=== PATIENT | male | born 1945 | race Caucasian/White ===

== ENCOUNTER → 2018-07-09 08:26 | Outpatient (CLI) | payer MEDICARE, OTHER, SELFPAY ==
[2018-07-09 08:58] LABS: Add Manual Diff / Slide Review NO; Basophils Absolute Auto 0 /uL (0-100); Basophils Percent Auto 0.2 % (0-2); Eosinophils Absolute Auto 300 /uL (0-450); Eosinophils Percent Auto 3.8 % (2-4); Hematocrit 45.6 % (41-53); Hemoglobin 15.8 g/dL (13.5-17.5); Lymphocytes Absolute Auto 2500 /uL (1100-4500); Mean Corpuscular HGB Conc 34.6 % (30-36); Mean Corpuscular Hemoglobin 33.3 PG (26-34); Mean Corpuscular Volume 96.1 fL (80-100); Monocytes Absolute Auto 800 /uL (0-900); Neutrophils Absolute Auto 3400 /uL (1500-7000); Platelet Count 319 X10^3/uL (150-400); Red Blood Cell Count 4.75 X10^6/uL (4.5-5.9); Red Cell Distribution Width 12.9 % (11.6-14.8); White Blood Cell Count 7.1 X10^3/uL (4.5-11.0)
[2018-07-09 08:59] LABS: HEMOLYSIS 18 (0-50)
[2018-07-09 09:02] LABS: Appearance Urine UA CLEAR; Bilirubin Urine UA NEGATIVE (NEGATIVE); Color Urine UA YELLOW; Glucose Urine UA NEGATIVE (Negative); Ketones Urine UA NEGATIVE (NEGATIVE); Leukocyte Esterase Urine UA NEGATIVE (NEGATIVE); Nitrite Urine UA NEGATIVE (Negative); Occult Blood Urine UA NEGATIVE (Negative); Protein Urine UA NEGATIVE (Negative); Specific Gravity Urine UA 1.025 (1.000-1.035); Urobilinogen Urine UA 0.2 E.U./dL (0.2)
[2018-07-09 09:06] LABS: Alanine Aminotransferase 39 IU/L (21-72); Albumin 4.6 g/dL (3.5-5.0); Albumin Globulin Ratio 1.4 (1.0-2.8); Alkaline Phosphatase 66 U/L (38-126); Aspartate Aminotransferase 29 IU/L (17-59); BUN Creatinine Ratio 25.7 (6-22); Bilirubin Total 0.5 mg/dL (0.2-1.3); Blood Urea Nitrogen 18 mg/dL (9-20); Calcium 9.5 mg/dL (8.4-10.2); Carbon Dioxide 24 mmol/L (22-32); Chloride 103 mmol/L (98-107); Cholesterol 251 mg/dL (140-199); Estimated Glomerular Filt Rate > 60.0 mL/min (>60); Globulin 3.2 g/dL (1.7-4.1); Glucose 107 mg/dL (80-110); HDL Cholesterol 55 mg/dL (40-60); LDL Cholesterol Calculated 177 mg/dL (<100); Potassium 4.4 mmol/L (3.4-5.1); Sodium 137 mmol/L (137-145); Total Protein 7.8 g/dL (6.3-8.2); Triglycerides 97 mg/dL (35-150)
[2018-07-09 09:38] LABS: Prostate Specific Antigen 4.83 ng/mL (0.10-4.00)
[2018-07-09 10:11] LABS: Thyroid Stimulating Hormone 1.65 uIU/mL (0.47-4.68)
== END ==
PROVIDERS: PCP Family Medicine; Visit Provider Family Medicine
DX: I10 Essential (primary) hypertension (principal); Z13.220 Encounter for screening for lipoid disorders; Z13.29 Encounter for screening for other suspected endocrine disorder; Z51.81 Encounter for therapeutic drug level monitoring; Z12.5 Encounter for screening for malignant neoplasm of prostate
CPT/HCPCS: 36415; 80053; 80061; 81003; 84153; 84443; 85025; G0103

== ENCOUNTER → 2018-08-07 13:46 | Outpatient (CLI) | payer MEDICARE, OTHER, SELFPAY ==
--- NOTE | 2018-08-07 14:52 | PM.TREADMILL ---
Cardiac Stress Test Report Referral & Results Date Patient Seen: 08/07/18 Requesting provider: Andreina Lord Procedure Note: Patient was hooked up to the treadmill system as usual However patient was unable to walk safely on the treadmill even at its lowest be. He consistently fell behind almost fell several times and despite stopping and starting it and trying to demonstrate for him how to walk ?normally? he was unable to walk on the treadmill at all Impression: Nondiagnostic treadmill obviously as above. If clinical concern warrants suggest scheduling patient for a resting Lexiscan which will avoid having to place patient on treadmill Please note: Actual ECG tracings can be found in the PACS system.
== END ==
PROVIDERS: PCP Family Medicine; Visit Provider Family Medicine
DX: I10 Essential (primary) hypertension (principal); Z53.09 Procedure and treatment not carried out because of other contraindication

== ENCOUNTER → 2018-09-23 08:16 | Outpatient (CLI) | payer MEDICARE, OTHER, SELFPAY ==
--- NOTE | 2018-09-23 09:32 | PM.TREADMILL ---
Cardiac Stress Test Report Referral & Results Date Patient Seen: 09/23/18 Requesting provider: Andreina Lord Indication: Chest pain Rest ECG: Unremarkable Procedure Note: After both written and verbal informed consent the patient had an IV started by the diagnostic imaging RN and then was hooked up to the treadmill monitoring system. The patient was placed on the treadmill at 1 mile an hour with no elevation and was then injected with the Brea scan material. The Cardiolite was then immediately administered. The patient spent an additional 2-3 minutes on the treadmill before being returned to the [facility] in the supine position. The patient had a normal response to all infused materials. Patient did manage to hit heart rate target for exercise but blood pressure did not change significantly from baseline There are no ST-T segment changes and no dysrhythmias noted while patient was on treadmill. (Patient was started as a exercise Cardiolite until was determined he simply could not walk on the treadmill at more than 1 mi an hour) Impression: Normal response as above Please see perfusion imaging report for details regarding possible ischemia Please note: Actual ECG tracings can be found in the PACS system.
--- NOTE | 2018-09-24 19:14 | DI.NM.S_ITS ---
DATE OF SERVICE: 09/23/2018 PROCEDURE: Pharmacological perfusion study. INDICATIONS: Chest pain with underlying hypertension, hyperlipidemia. RADIOPHARMACEUTICAL: 27.3 mCi technetium-99m Myoview IV was injected at stress and 24.7 mCi technetium-99m Myoview IV was injected at rest. CARDIAC STRESS: Patient initially attempted exercise stress test; however, couldn't keep up with stage 2 on Pritesh protocol, hence converted to IV Lexiscan perfusion stress test. The patient received IV Lexiscan as per the standard protocol under the supervision of an attending staff. Baseline EKG revealed sinus rhythm. During exercise, patient achieved a heart rate of 135, which was about 90% of target heart rate. There were no significant inducible ischemic changes. There were no significant arrhythmias. There was normal blood pressure response. At the end of stress test, oxygen saturation was 91%. RAW DATA: Increased subdiaphragmatic activity seen. GATED STUDY: Resting stress LV ejection fraction 70%. Stress LV ejection fraction 75%. No I don't see any significant wall motion abnormalities. No transient ischemic dilatation. TID ratio is 0.63, which is within normal limits. Resting LV end-diastolic volume is 105 mL. Lung/heart ratio is 0.28, which is within normal limits. MYOCARDIAL PERFUSION SCAN: Stress supine and resting supine images revealed small -sized mildly decreased perfusion of basal inferior wall which got improved during prone images suggestive of diaphragmatic tissue attenuation artifact. In prone images, there was new distal anterior wall defect which was not seen during stress supine or resting supine images. There is evidence of shifting tissue attenuation artifact as well. No No convincing ischemia infarction. CONCLUSION: I will call this study a normal myocardial perfusion study with evidence of tissue attenuation artifact as described above. LV function is preserved. Overall, this is a low-risk myocardial perfusion scan. Patient has poor exercise tolerance. Stew Delgado - CONVENTION SERVICES MANAGER/ivan/ doc#: [id number]/job#: [id number] dd: 09/24/2018 16:58:00 dt: 09/24/2018 18:58:00 DICTATING MD/COPIES TO: Corwin Qureshi MD COPIES MNE: ANDRÉS
== END ==
PROVIDERS: PCP Family Medicine; Visit Provider Family Medicine
DX: R07.89 Other chest pain (principal); I10 Essential (primary) hypertension; E78.5 Hyperlipidemia, unspecified
CPT/HCPCS: 78452; 93016; 93017; 93018; A9502; J2785

== ENCOUNTER → 2019-03-10 16:33 | Outpatient (CLI) | payer MEDICARE, OTHER, SELFPAY ==
[2019-03-10 18:28] LABS: Alanine Aminotransferase 35 IU/L (<50); Albumin 4.8 g/dL (3.5-5.0); Albumin Globulin Ratio 1.7 (1.0-2.8); Alkaline Phosphatase 79 U/L (38-126); Aspartate Aminotransferase 35 IU/L (17-59); BUN Creatinine Ratio 27.1 (6-22); Bilirubin Total 0.8 mg/dL (0.2-1.3); Blood Urea Nitrogen 19 mg/dL (9-20); Calcium 10.1 mg/dL (8.4-10.2); Carbon Dioxide 26 mmol/L (22-32); Chloride 97 mmol/L (98-107); Cholesterol 179 mg/dL (140-199); Estimated Glomerular Filt Rate > 60.0 mL/min (>60); Globulin 2.8 g/dL (1.7-4.1); Glucose 88 mg/dL (80-110); HDL Cholesterol 75 mg/dL (40-60); HEMOLYSIS < 15 (0-50); LDL Cholesterol Calculated 74 mg/dL (<100); Potassium 4.2 mmol/L (3.4-5.1); Sodium 137 mmol/L (137-145); Total Protein 7.6 g/dL (6.3-8.2); Triglycerides 151 mg/dL (35-150)
== END ==
PROVIDERS: PCP Family Medicine; Visit Provider Family Medicine
DX: I10 Essential (primary) hypertension (principal); E78.5 Hyperlipidemia, unspecified
CPT/HCPCS: 36415; 80053; 80061

== ENCOUNTER 2019-10-14 15:49 | Emergency (ER) | payer MEDICARE, OTHER, SELFPAY ==
[2019-10-14 16:04] VITALS: BP 140/86; PULSE 99; RESP 20; TEMP 36.6; O2SAT 97; BMI 27.1
--- NOTE | 2019-10-14 16:15 | DI.RAD.S_ITS ---
PROCEDURE: XR RIBS RT MIN 3V W CXR 1V INDICATIONS: pain sp fall onto 2 x4 TECHNIQUE: 2 views of the right ribs were acquired, along with a single view chest. COMPARISON: [facility], , CHEST 1 VIEW, 02/24/2017, 14:06. FINDINGS: Surgical changes and devices: None. Bones and chest wall: A marker is placed upon the area of clinical concern. Within this region, there is a mildly displaced rib fractures involving the 7th and 8th ribs. Remote right posterior lateral rib fractures are seen inferiorly. No suspicious bony lesions. Age-appropriate bony degenerative changes are seen. Overlying soft tissues appear unremarkable. Lungs and pleura: An incomplete inspiratory result is noted, causing a crowded appearance to the lung markings. No focal infiltrates are seen. No pneumothorax or significant pleural effusions are seen. Mediastinum: The cardiac contours are within normal limits. The aorta demonstrates calcification and tortuosity. IMPRESSION: Acute appearing right lateral 7th and 8th rib fractures. No associated pneumothorax is seen. Remote right posterior lateral rib fractures are seen inferiorly. Dictated by: Jin Pepe M.D. on 10/14/2019 at 15:33 Approved by: Jin Pepe M.D. on 10/14/2019 at 15:35
[2019-10-14] MEDS: LIDOCAINE PATCH 1 EACH ADH..PATCH TOP (16:22)
--- NOTE | 2019-10-14 16:23 | PC.NURSE ---
Pt to Xray
--- NOTE | 2019-10-14 16:25 | ED_ITS ---
HPI - Fall <CATHERINE Hguhes - Last Filed: 10/14/19 18:30> General Chief Complaint: Trauma Stated Complaint: fell off ladder,ribs hurt Time Seen by Provider: 10/14/19 16:07 Source: patient Mode of arrival: Ambulatory Limitations: no limitations History of Present Illness HPI Narrative: The patient is a 73-year-old male former smoker with history of hypertension who presents with a chief complaint of right-sided rib pain. The patient states he fell off of a ladder at 2 ft and landed with his ribs on a 2 x 4 that was on the ground. He did not lose consciousness. He denies hitting his head any neck or back pain. He denies any numbness or tingling. He states that his pain is isolated to his right lower ribs, worse when taking a deep breath or applying pressure. He has not taken anything at home for pain. He denies any hemoptysis. Denies any shortness of breath, but states it is painful to take a deep breath. The injury occurred on 10/10/2019. Given that the patient is a 73-year-old male who fell with a expected injury, a modified trauma was activated for this patient. Related Data Home Medications Medication Instructions Recorded Confirmed aspirin 81 mg PO QDAY #0 05/22/17 05/21/19 Previous Rx's Medication Instructions Recorded codeine 10 mg-guaifenesin 100 mg/5 5 ml PO ONCE #120 ml 05/01/19 mL oral liquid acyclovir 800 mg tablet 800 mg PO 5XD #50 tab 08/14/19 alprazolam 0.5 mg tablet 0.5 mg PO QDAY PRN #30 tab 08/14/19 lisinopril 20 See Rx Instructions .ROUTE 08/14/19 mg-hydrochlorothiazide 12.5 mg .COMPLEX #90 tab tablet hydrocodone-acetaminophen 1 tab PO Q4-6H PRN #10 tab 10/14/19 lidocaine 1 patch TOP DAILY PRN #15 each 10/14/19 Allergies Allergy/AdvReac Type Severity Reaction Status Date / Time Penicillins [PENICILLINS] Allergy Intermediate Verified 05/21/19 16:30 Review of Systems <CATHERINE Hughes - Last Filed: 10/14/19 18:30> Review of Systems Narrative: GENERAL: Denies chills, fatigue, malaise, fever, sweats. HEENT: Denies sinus pain, ear pain, sore throat, difficulty swallowing, dizziness. RESPIRATORY: See HPI CARDIOVASCULAR: Denies chest pain, palpitations, orthopnea, edema, GASTROINTESTINAL: Denies nausea, vomiting, abdominal pain, diarrhea, constipation, melena. : Denies dysuria, frequency, incontinence, hematuria, urinary retention. MUSCULOSKELETAL: denies weakness, joint pain, or bony pain SKIN: Denies rash, skin lesions, or other NEUROLOGIC: Denies weakness, headache, numbness, change in speech, confusion, seizures, incoordination. PSYCHIATRIC: No concerning psychosocial issues. 12 point review of systems is negative except for those stated above Patient History <CATHERINE Hughes - Last Filed: 10/14/19 18:30> Medical History (Updated 10/14/19 @ 17:05 by CATHERINE Hughes) Hyperlipidemia, mixed (Acute) Social History Smoking Status: Former smoker Tobacco: How many years used: 40 alcohol intake: current Smoking Status: Former smoker alcohol intake frequency: 0-2 drinks per day Alcohol type: hard liquor Substance Use Type: does not use Exam <CATHERINE Hughes - Last Filed: 10/14/19 18:30> Narrative Exam Narrative: GENERAL: This is a well-nourished, well-developed patient, in no acute distress HEAD: Atraumatic. Normocephalic. No temporal or scalp tenderness. EYES: Pupils equal round and reactive. Extraocular motions intact. No scleral icterus. No injection or drainage. ENT: Nose without bleeding, purulent drainage or septal hematoma. Airway patent. NECK: Trachea midline. No JVD or lymphadenopathy. Supple, nontender, no meningeal signs. CARDIOVASCULAR: Regular rate and rhythm without murmurs, gallops, or rubs. RESPIRATORY: Clear to auscultation. Breath sounds equal bilaterally. No wheezes, rales, or rhonchi. Pain to palpation right lower ribs. Pain to lateral chest wall compression as well as anterior posterior chest wall compression GASTROINTESTINAL: Abdomen soft, non-tender, nondistended. No hepato- splenomegaly, or palpable masses. No guarding. Active bowel sounds all 4 quadrants. EXTREMITIES: No clubbing, cyanosis, or edema. No joint tenderness, effusion, or edema noted. BACK: Nontender without deformity or crepitance. No flank tenderness. No pain to CT or L-spine palpation. NEURO: AOx3. Stable gait. SKIN: No rash or erythema on visible skin. No ecchymosis laceration or abrasion Initial Vital Signs Initial Vital Signs: Vital Signs Temperature 97.9 F 10/14/19 16:04 Pulse Rate 99 H 10/14/19 16:04 Respiratory Rate 10/14/19 16:04 Blood Pressure 140/86 10/14/19 16:04 Pulse Oximetry 97 10/14/19 16:04 <DO Colleen Kearney Last Filed: 10/14/19 18:39> Initial Vital Signs Initial Vital Signs: Vital Signs Temperature 97.9 F 10/14/19 16:04 Pulse Rate 99 H 10/14/19 16:04 Respiratory Rate 10/14/19 16:04 Blood Pressure 140/86 10/14/19 16:04 Pulse Oximetry 97 10/14/19 16:04 Scores <CATHERINE Hughes - Last Filed: 10/14/19 18:30> GCS [place] coma scale eye opening: Spontaneous Kenny coma scale verbal response: Orientated Kenny coma scale motor response: Obey commands [place] coma scale total score: 15 Nexus Score for C-Spine Focal Neurologic deficit present: No Midline spinal tenderness present: No Altered level of conciousness present: No Intoxication present: No Distracting Injury Present: No Nexus Criteria for C-spine: 0 Course <CATHERINE Hughes - Last Filed: 10/14/19 18:30> Orders Ordered: ED Orders 10/14/19 16:15 XR ribs RT min 3V w CXR1V Stat Discontinued Medications Lidocaine (Lidoderm) 1 each TOP NOW ONE Stop: 10/14/19 16:17 Last Admin: 10/14/19 16:22 Dose: 1 each Documented by: IFRAH Vital Signs Vital signs: Vital Signs - 8 hr 10/14/19 16:04 10/14/19 17:27 Temperature 97.9 F Pulse Rate 99 H 78 Respiratory Rate 20 Blood Pressure 140/86 Blood Pressure [Left Arm] 121/80 Pulse Oximetry 97 98 <DO Colleen Kearney Last Filed: 10/14/19 18:39> Orders Ordered: ED Orders 10/14/19 16:15 XR ribs RT min 3V w CXR1V Stat Discontinued Medications Lidocaine (Lidoderm) 1 each TOP NOW ONE Stop: 10/14/19 16:17 Last Admin: 10/14/19 16:22 Dose: 1 each Documented by: IFRAH Vital Signs Vital signs: Vital Signs - 8 hr 10/14/19 16:04 10/14/19 17:27 Temperature 97.9 F Pulse Rate 99 H 78 Respiratory Rate 20 Blood Pressure 140/86 Blood Pressure [Left Arm] 121/80 Pulse Oximetry 97 98 MDM - Fall <CATHERINE Hughes - Last Filed: 10/14/19 18:30> Imaging Data rib xr: Radiologist's Impression: [address] [place] [id number] XRay Report Signed Patient: Stew Delgado RMR#: [id number] : 8Acct:[id number] Age/Sex: 73 / MDate of Service: 10/14/19 Loc: ED Accession Number: [id number] Procedure: XR ribs RT min 3V w CXR1V Ordering Provider: Daisy Grey PROCEDURE: XR RIBS RT MIN 3V W CXR 1V INDICATIONS: pain sp fall onto 2 x4 TECHNIQUE: 2 views of the right ribs were acquired, along with a single view chest. COMPARISON: [facility], CHEST 1 VIEW, 02/24/2017, 14:06. FINDINGS: Surgical changes and devices: None. Bones and chest wall: A marker is placed upon the area of clinical concern. Within this region, there is a mildly displaced rib fractures involving the 7th and 8th ribs. Remote right posterior lateral rib fractures are seen inferiorly. No suspicious bony lesions. Age-appropriate bony degenerative changes are seen. Overlying soft tissues appear unremarkable. Lungs and pleura: An incomplete inspiratory result is noted, causing a crowded appearance to the lung markings. No focal infiltrates are seen. No pneumothorax or significant pleural effusions are seen. Mediastinum: The cardiac contours are within normal limits. The aorta demonstrates calcification and tortuosity. IMPRESSION: Acute appearing right lateral 7th and 8th rib fractures. No associated pneumothorax is seen. Remote right posterior lateral rib fractures are seen inferiorly. Dictated by: Jin Pepe M.D. on 10/14/2019 at 15:33 Approved by: Jin Pepe M.D. on 10/14/2019 at 15:35 [facility] Narrative Medical decision making narrative: The patient is a 73-year-old male former smoker presents with a chief complaint of pain after falling onto a 2 x 4 on Saturday. X-ray indicates to rib fractures. The patient stated medically stable, oxygenating well, responded well to the above-stated medications. Given his mechanism, a modified trauma was activated upon patient arrival. He received incentive spirometry teaching, which the patient repeatedly try to avoid. I discussed at length the importance of following up with primary care provider, doing IS to help prevent pneumonia as well as coming back to the emergency department for any acute concerns. Discussed not taking his [place] in combination with his anxiety medication, can be sedating etcetera. Patient has no questions or concerns upon discharge and states understanding return precautions as well as follow-up care. Discharge Plan Departure Patient Disposition: Home Clinical Impression: Closed rib fracture Qualifiers: Encounter type: initial encounter Rib fracture type: multiple ribs Laterality: right Qualified Code(s): S22.41XA - Multiple fractures of ribs, right side, initial encounter for closed fracture Accidental fall from ladder Qualifiers: Encounter type: initial encounter Qualified Code(s): W11.XXXA - Fall on and from ladder, initial encounter Discharge Date/Time: 10/14/19 18:19 Instructions: How to Use an Incentive Spirometer, DI for Rib Fracture Activity Restrictions/Additional Instructions: Thank you for trusting us with your care today Your x-ray indicates to rib fractures on her right side. I sent pain medication as well as pain patch to [facility] You have been prescribed narcotic medications. While on these medications you cannot drive or operate heavy machinery. Additionally you cannot sign legal documents or perform any duties such as this. Many people get constipated on narcotic medications so it would be advisable to discuss stool softeners with the pharmacist when you sweet pickle maker your prescription. Please follow-up with primary care provider in the next few days. Please be sure to use the incentive spirometer to help prevent pneumonia Please come back to the emergency department for any acute concerns Prescriptions: New hydrocodone-acetaminophen 5-325 mg tablet 1 tab PO Q4-6H PRN (Reason: pain) Qty: 10 RF: 0 lidocaine 5 % adhesive patch,medicated 1 patch TOP DAILY PRN (Reason: pain) Qty: 15 RF: 0 No Action aspirin 81 MG tablet,chewable 81 mg PO QDAY Qty: 0 RF: 0 acyclovir 800 mg tablet 800 mg PO 5XD Qty: 50 RF: 3 alprazolam [Xanax] 0.5 mg tablet 0.5 mg PO QDAY PRN (Reason: anxiety) Qty: 30 RF: 0 lisinopril-hydrochlorothiazide 20-12.5 mg tablet See Rx Instructions .ROUTE .COMPLEX Qty: 90 RF: 1 codeine-guaifenesin 10-100 mg/5 mL liquid 5 ml PO ONCE Qty: 120 RF: 0 Referrals: Nathanael Santoro DO [Primary Care Provider] - <Scott Haq DO - Last Filed: 10/14/19 18:39> Cosign ED Attending Cosignature Attestation: Dr Haq Co-Sign Statement: I was available for consultation during this patient's emergency department visit. This chart is signed by myself for administrative purposes only. I did not have direct contact with this patient during this visit. They were seen independently by the APC.
[2019-10-14 17:27] VITALS: BP 121/80; PULSE 78; O2SAT 98
== END 2019-10-14 18:19 | disposition home or self-care (01) ==
PROVIDERS: Emergency Provider Nurse Practitioner Family; PCP Family Medicine
DX: S22.41XA Multiple fractures of ribs, right side, initial encounter for closed fracture (principal); W11.XXXA Fall on and from ladder, initial encounter; I10 Essential (primary) hypertension
CPT/HCPCS: 71101; 99283; 99284

== ENCOUNTER → 2022-09-26 09:26 | Outpatient (CLI) | payer MEDICARE, OTHER, SELFPAY ==
[2022-09-26 10:23] LABS: Add Manual Diff / Slide Review NO; Basophils Absolute Auto 100 /uL (0-100); Basophils Percent Auto 0.9 % (0-2); Eosinophils Absolute Auto 300 /uL (0-450); Eosinophils Percent Auto 3.6 % (2-4); Hematocrit 44.8 % (41-53); Hemoglobin 15.7 g/dL (13.5-17.5); Lymphocytes Absolute Auto 1700 /uL (1100-4500); Lymphocytes Percent Auto 23.7 % (25-40); Mean Corpuscular Hemoglobin 33.5 PG (26-34); Mean Corpuscular Volume 95.8 fL (80-100); Monocytes Absolute Auto 700 /uL (0-900); Neutrophils Absolute Auto 4600 /uL (1500-7000); Neutrophils Percent Auto 61.8 % (50-75); Platelet Count 324 X10^3/uL (150-400); Red Blood Cell Count 4.68 X10^6/uL (4.5-5.9); Red Cell Distribution Width 12.8 % (11.6-14.8); White Blood Cell Count 7.4 X10^3/uL (4.5-11.0)
[2022-09-26 10:54] LABS: HEMOLYSIS < 15 (0-50)
[2022-09-26 10:59] LABS: Alanine Aminotransferase 27 IU/L (<50); Albumin 4.4 g/dL (3.5-5.0); Albumin Globulin Ratio 1.3 (1.0-2.8); Alkaline Phosphatase 89 U/L (38-126); Aspartate Aminotransferase 26 IU/L (17-59); BUN Creatinine Ratio 19.8 (6-22); Bilirubin Total 0.6 mg/dL (0.2-1.3); Blood Urea Nitrogen 17 mg/dL (9-20); Carbon Dioxide 23 mmol/L (22-32); Chloride 100 mmol/L (98-107); Cholesterol 229 mg/dL (140-199); Estimated Glomerular Filt Rate > 60 mL/min (>60); Globulin 3.5 g/dL (1.7-4.1); Glucose 119 mg/dL (80-110); HDL Cholesterol 67 mg/dL (40-60); LDL Cholesterol Calculated 149 mg/dL (<100); Potassium 4.4 mmol/L (3.4-5.1); Sodium 135 mmol/L (137-145); Total Protein 7.9 g/dL (6.3-8.2); Triglycerides 64 mg/dL (35-150)
== END ==
PROVIDERS: PCP Family Medicine; Referring Provider Family Medicine; Visit Provider Family Medicine
DX: E78.2 Mixed hyperlipidemia (principal); Z12.5 Encounter for screening for malignant neoplasm of prostate; I10 Essential (primary) hypertension
CPT/HCPCS: 36415; 80053; 80061; 85025; G0103

== ENCOUNTER → 2023-03-07 09:20 | Outpatient (CLI) | payer MEDICARE, OTHER, SELFPAY ==
[2023-03-07 11:33] LABS: Cholesterol 129 mg/dL (140-199); HDL Cholesterol 72 mg/dL (40-60); LDL Cholesterol Calculated 44 mg/dL (<100); Triglycerides 67 mg/dL (35-150)
== END ==
PROVIDERS: PCP Family Medicine; Referring Provider Family Medicine; Visit Provider Family Medicine
DX: E78.2 Mixed hyperlipidemia (principal)
CPT/HCPCS: 36415; 80061

== ENCOUNTER → 2023-03-14 14:43 | Outpatient (CLI) | payer MEDICARE, OTHER, SELFPAY | PROVIDERS: PCP Family Medicine; Referring Provider Family Medicine; Visit Provider Family Medicine | DX: I10 Essential (primary) hypertension (principal) | CPT/HCPCS: 93005; 93010 ==

== ENCOUNTER → 2023-04-23 13:26 | Outpatient (CLI) | payer MEDICARE, OTHER, SELFPAY ==
--- NOTE | 2023-04-25 00:08 | DI.NM.S_ITS ---
DATE OF SERVICE: 04/24/2023 PROCEDURE: Pharmacological perfusion study. INDICATIONS: Abnormal EKG with underlying hypertension, hyperlipidemia. RADIOPHARMACEUTICAL: 26.8 millicurie technetium-99m Myoview IV was injected at stress and 25.7 millicurie technetium-99m Myoview IV was injected at rest. CARDIAC STRESS: The patient underwent IV Lexiscan perfusion study under the supervision of an attending staff. Remained hemodynamically stable. Maximum blood pressure 118/70. Baseline rhythm was sinus with some repolarization changes. During stress, no convincing ischemic changes seen. No significant arrhythmias. No chest pain. RAW DATA: There is increased subdiaphragmatic activity. The patient's weight is 195 pounds. GATED STUDY: Resting LV ejection fraction 67% and stress LV ejection fraction 72%. No wall motion abnormalities. Resting end-diastolic volume 92 mL. TID ratio 1.08, which is within normal limits. Lung/heart ratio 0.62, which is abnormal. MYOCARDIAL PERFUSION SCAN: Stress supine, resting supine and stress prone images were compared to each other. Stress supine and resting supine images revealed small size, mildly decreased perfusion of basal inferior wall, which got resolved during stress prone images suggestive of tissue attenuation artifact. No convincing ischemia or infarction pattern seen. CONCLUSION: I will call this study a normal myocardial perfusion study with evidence of diaphragmatic tissue attenuation artifact, which got resolved during prone images. Preserved left ventricular function. Normal TID ratio. However, lung/heart ratio is abnormal 0.62. Consider 2D echo to make sure there is no underlying diastolic dysfunction or valvular pathology. As far as perfusion scan is concerned, this is a low-risk myocardial perfusion scan. No significant change as far as perfusion scan is concerned from August 2018 study. Stew Delgado - CHARLENE/ivan/RODRICK doc#: [id number]/job#: [id number] dd: 04/24/2023 17:19:00 dt: 04/24/2023 23:51:00 DICTATING MD/COPIES TO: Corwin Qureshi MD COPIES MNE: ANDRÉS;
== END ==
PROVIDERS: PCP Family Medicine; Referring Provider Family Medicine; Visit Provider Family Medicine
DX: R94.31 Abnormal electrocardiogram [ECG] [EKG] (principal); R07.89 Other chest pain; I10 Essential (primary) hypertension; E78.2 Mixed hyperlipidemia
CPT/HCPCS: 78452; 93017; A9502; J2785

== ENCOUNTER → 2024-03-13 11:47 | Outpatient (CLI) | payer MEDICARE, OTHER, SELFPAY ==
[2024-03-13 12:50] LABS: Add Manual Diff / Slide Review NO; Basophils Absolute Auto 100 /uL (0-100); Basophils Percent Auto 0.7 % (0-2); Eosinophils Absolute Auto 100 /uL (0-450); Eosinophils Percent Auto 1.7 % (2-4); Hematocrit 42.1 % (41-53); Hemoglobin 14.7 g/dL (13.5-17.5); Lymphocytes Absolute Auto 1800 /uL (1100-4500); Lymphocytes Percent Auto 22.2 % (25-40); Mean Corpuscular HGB Conc 34.9 % (30-36); Mean Corpuscular Hemoglobin 33.4 PG (26-34); Mean Corpuscular Volume 95.6 fL (80-100); Monocytes Absolute Auto 800 /uL (0-900); Monocytes Percent Auto 9.4 % (3-14); Neutrophils Absolute Auto 5500 /uL (1500-7000); Platelet Count 307 X10^3/uL (150-400); Red Blood Cell Count 4.41 X10^6/uL (4.5-5.9); Red Cell Distribution Width 13.5 % (11.6-14.8); White Blood Cell Count 8.3 X10^3/uL (4.5-11.0)
[2024-03-13 13:21] LABS: Alanine Aminotransferase 34 IU/L (<50); Albumin 4.4 g/dL (3.5-5.0); Albumin Globulin Ratio 1.5 (1.0-2.8); Alkaline Phosphatase 74 U/L (38-126); Aspartate Aminotransferase 33 IU/L (17-59); BUN Creatinine Ratio 24.6 (6-22); Bilirubin Total 0.9 mg/dL (0.2-1.3); Blood Urea Nitrogen 16 mg/dL (9-20); Calcium 10.1 mg/dL (8.4-10.2); Carbon Dioxide 22 mmol/L (22-32); Chloride 103 mmol/L (98-107); Cholesterol 143 mg/dL (140-199); Estimated Glomerular Filt Rate > 60 mL/min (>60); Glucose 111 mg/dL (80-110); HDL Cholesterol 75 mg/dL (40-60); HEMOLYSIS < 15 (0-50); LDL Cholesterol Calculated 53 mg/dL (<100); Potassium 4.3 mmol/L (3.4-5.1); Sodium 133 mmol/L (137-145); Total Protein 7.4 g/dL (6.3-8.2); Triglycerides 73 mg/dL (35-150)
[2024-03-13 13:51] LABS: Prostate Specific Antigen Scrn 2.25 ng/mL (0.1-4.0)
[2024-03-13 15:07] LABS: Hemoglobin A1C% w Est Avg Glu 5.9 % (4.0-6.0)
== END ==
PROVIDERS: PCP Family Medicine; Referring Provider Family Medicine; Visit Provider Family Medicine
DX: E78.2 Mixed hyperlipidemia (principal); I10 Essential (primary) hypertension; Z12.5 Encounter for screening for malignant neoplasm of prostate; R73.09 Other abnormal glucose
CPT/HCPCS: 36415; 80053; 80061; 83036; 85025; G0103

== ENCOUNTER → 2024-04-15 09:32 | Outpatient (CLI) | payer MEDICARE, OTHER, SELFPAY ==
[2024-04-16 10:36] LABS: Fecal Immunochemical Test Negative (Negative)
== END ==
PROVIDERS: PCP Family Medicine; Referring Provider Family Medicine; Visit Provider Family Medicine
DX: Z00.00 Encounter for general adult medical examination without abnormal findings (principal)
CPT/HCPCS: 82274

== ENCOUNTER → 2025-03-20 07:37 | Outpatient (CLI) | payer MEDICARE, OTHER, SELFPAY ==
[2025-03-20 08:54] LABS: Add Manual Diff / Slide Review NO; Hematocrit 44.8 % (41-53); Hemoglobin 15.6 g/dL (13.5-17.5); Lymphocytes Absolute Auto 1700 /uL (1100-4500); Mean Corpuscular HGB Conc 34.8 % (30-36); Mean Corpuscular Hemoglobin 33.1 PG (26-34); Mean Corpuscular Volume 95.2 fL (80-100); Platelet Count 288 X10^3/uL (150-400)
[2025-03-20 09:03] LABS: Hemoglobin A1C% w Est Avg Glu 5.8 % (4.0-6.0)
[2025-03-20 09:23] LABS: Alanine Aminotransferase 21 IU/L (<50); Albumin 4.6 g/dL (3.5-5.0); Albumin Globulin Ratio 1.4 (1.0-2.8); Alkaline Phosphatase 68 U/L (38-126); Blood Urea Nitrogen 18 mg/dL (9-20); Calcium 10.0 mg/dL (8.4-10.2); Carbon Dioxide 21 mmol/L (22-32); Chloride 104 mmol/L (98-107); Cholesterol 217 mg/dL (140-199); Estimated Glomerular Filt Rate > 60 mL/min (>60); Globulin 3.3 g/dL (1.7-4.1); Glucose 113 mg/dL (70-99); HDL Cholesterol 69 mg/dL (40-60); Potassium 4.8 mmol/L (3.4-5.1); Sodium 136 mmol/L (137-145); Total Protein 7.9 g/dL (6.3-8.2); Triglycerides 137 mg/dL (35-150)
[2025-03-20 09:34] LABS: HEMOLYSIS 70 (0-50)
== END ==
PROVIDERS: PCP Family Medicine; Referring Provider Family Medicine; Visit Provider Family Medicine
DX: I10 Essential (primary) hypertension (principal); Z12.5 Encounter for screening for malignant neoplasm of prostate; E78.2 Mixed hyperlipidemia
CPT/HCPCS: 36415; 80053; 80061; 83036; 85025; G0103